=== PATIENT | female | born 1970 | race Caucasian/White ===

== ENCOUNTER 2017-08-04 09:05 | Emergency (ER) | payer BC ==
[2017-08-04 09:32] VITALS: BP 176/83
--- NOTE | 2017-08-04 09:36 | UC ---
Skin Complaint HPI - HPI Summary HPI Summary: 47 y/o female presents to the urgent care c/o tick bite under the left breast she noticed it when she was taking a shower. She removed tick. She hasn't been out in the [place], but has a dog. Pt denies Hx of tick bites in the past. Pt denies fever, SAAB, joint pain, SOB, chest pain, abdominal pain, N/V/D. - History of Current Complaint Chief Complaint: UCSkin Time Seen by Provider: 08/04/17 09:34 Stated Complaint: TICK Hx Obtained From: Patient Hx Last Menstrual Period: 05/05/14 Onset/Duration: Sudden Onset, Lasting Hours - 2hrs ago, Still Present Skin Exposure Onset/Duration: Hours Ago - 2hrs Timing: Constant Onset Severity: Mild Current Severity: Mild Pain Intensity: 0 Pain Scale Used: 0-10 Numeric Location: Discrete - under left breast Character: Pruritus, Redness Aggravating Factor(s): Touch Alleviating Factor(s): Nothing Associated Signs & Symptoms: Positive: Rash. Negative: Fever, Chills, Tenderness, Red Streaks Related History: Possible Reaction to: Insect - Allergy/Home Medications Allergies/Adverse Reactions: Allergies Allergy/AdvReac Type Severity Reaction Status Date / Time No Known Allergies Allergy Verified 05/06/14 09:43 Home Medications: Home Medications NK [No Home Medications Reported] 08/04/17 [History Confirmed 08/04/17] Review of Systems Constitutional: Negative Skin: Rash - tick bite under left breast Eyes: Negative ENT: Negative Respiratory: Negative Cardiovascular: Negative Gastrointestinal: Negative Genitourinary: Negative Motor: Negative Neurovascular: Negative Musculoskeletal: Negative Neurological: Negative Psychological: Negative Is Patient Immunocompromised?: No All Other Systems Reviewed And Are Negative: Yes PMH/Surg Hx/FS Hx/Imm Hx Previously Healthy: Yes - Pt denies PMHX - Surgical History Surgical History: Yes Surgery Procedure, Year, and Place: BREAST AUGEMENTATION - Family History Known Family History: Positive: None - Pt denies FMHX - Social History Occupation: Employed Full-time Lives: With Family Alcohol Use: Occasionally Substance Use Type: None Smoking Status (MU): Never Smoked Tobacco Physical Exam - Summary Physical Exam Summary: Vital Signs Reviewed: Yes General: well developed, well nourished female sitting in the examining table w/ o any apparent distress. Eyes: Positive: Conjunctiva Clear - PERRLA, EOMI ENT: Positive: Normal ENT inspection, Hearing grossly normal, Pharynx normal, TMs normal Neck: Positive: Supple, Nontender, No Lymphadenopathy Respiratory: Positive: Chest nontender, Lungs clear, Normal breath sounds Cardiovascular: Positive: RRR, No Murmur, Pulses Normal Abdomen Description: Positive: Nontender, No Organomegaly, Soft. Negative: CVA Tenderness (R), CVA Tenderness (L) Bowel Sounds: Positive: Present Musculoskeletal: Positive: Strength Intact, ROM Intact, No Edema Neurological Exam: Normal Psychological Exam: Normal Skin: Positive: rashes -Under left breast positive tick bite with surrounding erythema, non tender to palpation. tick no longer present, no swelling or drainage observed. Triage Information Reviewed: Yes Vital Signs: Initial Vital Signs Temp 97.3 F 08/04/17 09:24 Pulse 66 08/04/17 09:24 Resp 16 08/04/17 09:24 BP 176/83 08/04/17 09:24 Pulse Ox 100 08/04/17 09:24 Course/Dx - Course Course Of Treatment: 47 y/o female presents to the urgent care c/o tick bite under the left breast she noticed it when she was taking a shower. She removed tick. [place] been out [place], but has a dog. Pt denies Hx of tick bites in the past. Pt denies fever, SAAB, joint pain, SOB, chest pain, abdominal pain, N/V/D. Hx obtained. Pt w/ under left breast positive tick bite with surrounding erythema, non tender to palpation. tick no longer present, no swelling or drainage observed on examination. Antibiotic prophylaxis with Doxycycline given to the patient to prevent lyme Disease.. Pt tolerated well medication. Pt advised to observe the area for the development or Erythema Migrans for upto 30 days following exposure. Advised if he develops fever or erythema Migrans to return to the clinic or PCP for further treatment . Pt's BP is elevated today advised to decrease salt in diet, monitor BP and f/u with PCP for further management. Pt understood and agreed with plan of care. - Differential Diagnoses - Skin Complaint Differential Diagnoses: Cellulitis, Local Allergic Reaction, Tick Born Illness, Other - bee sting, insect bite - Diagnoses Provider Diagnoses: 1- tick bite. 2- elevated BP w/o Hx of HTN Discharge - Sign-Out/Discharge Documenting (check all that apply): Discharge/Admit/Transfer - D/C home - Discharge Plan Condition: Stable Disposition: HOME Patient Education Materials: Tick Bite (ED), Low-Sodium Diet (ED) Referrals: [facility] [Outside] - 1 Week Chapis RIOS,Melvin Boyer [Medical Doctor] - If Needed Additional Instructions: 1- Please observe the area for the development or Erythema Migrans for upto 30 days following exposure. Components of the tick saliva can cause transient erythema that should not be confused with Erythema Migrans. If you develop the bull's eye rash, fever, joint pains please return to the urgent care or f/u with your PCP for further management. 2-Antibiotic prophylaxis with Doxycycline was given to you today to prevent lyme Disease. Lyme serology can be drawn in 2 weeks with your PCP to r/o Lyme disease since there is probability of negative results at early exposure. 3-Your BP is elevated today. please decrease salt in your diet, monitor BP and if it continues to be elevated please f/u with your PCP for further management - Billing Disposition and Condition Condition: STABLE Disposition: HOME
[2017-08-04] MEDS ORDERED: DOXYcycline CAP(*) 100 MG PO ONE (09:43)
== END 2017-08-04 09:56 | disposition home or self-care (01) ==
LOC: UCCORT 09:05
DX: S20.162A Insect bite (nonvenomous) of breast, left breast, initial encounter (principal); W57.XXXA Bitten or stung by nonvenomous insect and other nonvenomous arthropods, initial encounter; Y93.9 Activity, unspecified; Y92.9 Unspecified place or not applicable; R03.0 Elevated blood-pressure reading, without diagnosis of hypertension
CPT/HCPCS: 99202; A9270-GY; G0463